=== PATIENT | female | born 1945 | race Caucasian/White ===

== ENCOUNTER 2017-02-08 10:46 | Emergency (ER) | payer OTHER ==
--- NOTE | 2017-02-08 12:32 | ED NURSING NOTES ---
Clinical Report - Nurses [facility] [address] [place] [address] 02/08/2017 10:50 Patient: IGOR YOUNGER TRIAGE Acuity: LEVEL 3. Chief Complaint: ABDOMINAL PAIN. Alert. No acute distress. --11:14 Carrie Damico R.N. 11:07 02/08/17. BP: 151/64. HR: 88. RR: 16. O2 saturation: 99%. Temp: 97.9 F. Pain level now: 10/15. --11:14 Carrie Damico R.N. Weight: 59.4 kg stated. Height/Length: 66 inches Per Patient. BMI: 21.1. --11:14 Carrie Damico R.N. Medications Levothyroxine Sodium Oral. --11:13 Carrie Damico R.N. Vitamin D Oral. --11:13 Carrie Damico R.N. Medication/allergy information source: the patient. --11:14 Carrie Damico R.N. Allergies No Known Drug Allergy. --11:13 Carrie Damico R.N. History Arrived by private vehicle. Historian: patient. Accompanied by spouse. Primary physician (Alfredo). Worsened while participating in light activity. Symptoms are constant (6 days ago). Describes the quality as "pain" and dull. Relates location as in the right lower quadrant. ( Pt reports 6 days of RLQ pain that worsens with a full bladder.). Reports last BM was this am. No nausea, vomiting, diarrhea or constipation. 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 PAST MEDICAL HX: The patient is post-menopausal. SOCIAL HX: Current every day light tobacco smoker (cigarette)- less than 1/2 a pack per day. Occasional alcohol use. No drug use. NUTRITIONAL RISK ASSESSMENT: The nutritional risk assessment revealed no deficiencies. FUNCTIONAL ASSESSMENT: Functional assessment: no impairments noted. LEARNING NEEDS ASSESSMENT: The learning needs assessment revealed no barriers. FALL RISK ASSESSMENT: Fall risk assessment completed. Risk factors identified include patient age greater than 65 years. Fall interventions initiated. Patient placed on stretcher. Side rails up x1. SKIN INTEGRITY ASSESSMENT: Skin integrity risk assessment completed. No skin integrity risk identified. --11:14 Carrie Damico R.N. PROBLEMS: Thyroid Disease. --11:13 Carrie Damico R.N. ADDITIONAL SURGERIES: Ulcer surgery. --11:11 Carrie Damico R.N. Assessment GENERAL / NEURO / PSYCH: Alert. Oriented X 4. Appears in no acute distress. [place] Coma Scale: 15- eyes open spontaneously (4); best verbal response- oriented x 4 (5); best motor response- obeys commands (6). Patient appears calm and cooperative. RESPIRATORY: Respirations not labored. CVS: Capillary refill less than 2 seconds. GI / : Abdomen soft. SKIN: Mucous membranes are pink. Skin is warm and dry. --11:14 Carrie Damico R.N. Interventions ID band on patient. To treatment room. --11:14 Carrie Damico R.N. PHYSICAL ASSESSMENT Ambulatory to room. GENERAL / NEURO / PSYCH: Alert. Oriented X 4. Appears in no acute distress. HEENT: Mucous membranes are pink. RESPIRATORY: Respirations not labored. CVS: Capillary refill less than 2 seconds. GI / : Abdomen soft and nontender. SKIN: Skin is warm and dry. --11:12 Carrie Damico R.N. NURSING PROGRESS NOTES Patient gowned. Two patient identifiers checked. Checked patient name and birthdate: patient confirmed. Call light placed in reach. Side rails up x 1. Bed placed in lowest position. Brakes of bed on. Patient ready for evaluation- chart flagged and ED physician notified. --11:11 Carrie Damico R.N. Checked patient name and birthdate: patient confirmed. Instructions provided to collect clean catch urine and patient verbalized understanding. Clean catch urine collected with return of yellow-colored clear urine; sample sent to lab for urinalysis. Specimen labeled in the presence of the patient. --11:15 Carrie Damico R.N. 12:52 02/08/2017 Site #1 started via IV in the left antecubital space with an 20g angiocath, with aseptic technique and good blood return; one attempt. Blood drawn: rainbow set. Labeled in the presence of the patient and sent to the lab. Saline lock flushed with 10 mL saline. --12:52 Carrie Damico R.N. 14:36 02/08/2017 Ciprofloxacin (Ciprofloxacin) PO 500 mg given. Allergies verified and confirmed 5 rights. --14:36 Carrie Damico R.N. 14:36 02/08/2017 Flagyl (MetroNIDAZOLE) PO 500 mg given. Allergies verified and confirmed 5 rights. --14:36 Carrie Damico R.N. DISPOSITION / DISCHARGE 14:37 02/08/17. BP: 165/84. HR: 80. RR: 16. O2 saturation: 100%. Temp: 97.8 F (oral). --14:37 Carrie Damico R.N. Departure time: 14:40 Feb 08 2017. Condition at departure: unchanged and stable. No learning barriers present. Reviewed medication(s) side effects, precautions, dosing and course information. Prescription(s) given to the patient. Patient verbalized understanding. Written instructions provided in Malagasy. The patient was discharged by the physician. She was discharged home and accompanied by spouse. She left the Emergency Department ambulatory and via private vehicle. Spouse driving. --18:40 Carrie Damico R.N. 14:40 02/08/2017 Site #1 removed upon discharge. Catheter intact. Manual pressure and bandage applied. --18:40 Carrie Damico R.N. Locked/Released at 02/08/2017 18:40 by Carrie Damico R.N.
--- NOTE | 2017-02-08 12:32 | ED NURSING NOTES ---
Clinical Report - Nurses [facility] [address] [place] [address] 02/08/2017 10:50 Patient: IGOR YOUNGER TRIAGE Acuity: LEVEL 3. Chief Complaint: ABDOMINAL PAIN. Alert. No acute distress. --11:14 Carrie Damico R.N. 11:07 02/08/17. BP: 151/64. HR: 88. RR: 16. O2 saturation: 99%. Temp: 97.9 F. Pain level now: 10/15. --11:14 Carrie Damico R.N. Weight: 59.4 kg stated. Height/Length: 66 inches Per Patient. BMI: 21.1. --11:14 Carrie Damico R.N. Medications Levothyroxine Sodium Oral. --11:13 Carrie Damico R.N. Vitamin D Oral. --11:13 Carrie Damico R.N. Medication/allergy information source: the patient. --11:14 Carrie Damico R.N. Allergies No Known Drug Allergy. --11:13 Carrie Damico R.N. History Arrived by private vehicle. Historian: patient. Accompanied by spouse. Primary physician (Alfredo). Worsened while participating in light activity. Symptoms are constant (6 days ago). Describes the quality as "pain" and dull. Relates location as in the right lower quadrant. ( Pt reports 6 days of RLQ pain that worsens with a full bladder.). Reports last BM was this am. No nausea, vomiting, diarrhea or constipation. 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 PAST MEDICAL HX: The patient is post-menopausal. SOCIAL HX: Current every day light tobacco smoker (cigarette)- less than 1/2 a pack per day. Occasional alcohol use. No drug use. NUTRITIONAL RISK ASSESSMENT: The nutritional risk assessment revealed no deficiencies. FUNCTIONAL ASSESSMENT: Functional assessment: no impairments noted. LEARNING NEEDS ASSESSMENT: The learning needs assessment revealed no barriers. FALL RISK ASSESSMENT: Fall risk assessment completed. Risk factors identified include patient age greater than 65 years. Fall interventions initiated. Patient placed on stretcher. Side rails up x1. SKIN INTEGRITY ASSESSMENT: Skin integrity risk assessment completed. No skin integrity risk identified. --11:14 Carrie Damico R.N. PROBLEMS: Thyroid Disease. --11:13 Carrie Damico R.N. ADDITIONAL SURGERIES: Ulcer surgery. --11:11 Carrie Damico R.N. Assessment GENERAL / NEURO / PSYCH: Alert. Oriented X 4. Appears in no acute distress. [place] Coma Scale: 15- eyes open spontaneously (4); best verbal response- oriented x 4 (5); best motor response- obeys commands (6). Patient appears calm and cooperative. RESPIRATORY: Respirations not labored. CVS: Capillary refill less than 2 seconds. GI / : Abdomen soft. SKIN: Mucous membranes are pink. Skin is warm and dry. --11:14 Carrie Damico R.N. Interventions ID band on patient. To treatment room. --11:14 Carrie Damico R.N. PHYSICAL ASSESSMENT Ambulatory to room. GENERAL / NEURO / PSYCH: Alert. Oriented X 4. Appears in no acute distress. HEENT: Mucous membranes are pink. RESPIRATORY: Respirations not labored. CVS: Capillary refill less than 2 seconds. GI / : Abdomen soft and nontender. SKIN: Skin is warm and dry. --11:12 Carrie Damico R.N. NURSING PROGRESS NOTES Patient gowned. Two patient identifiers checked. Checked patient name and birthdate: patient confirmed. Call light placed in reach. Side rails up x 1. Bed placed in lowest position. Brakes of bed on. Patient ready for evaluation- chart flagged and ED physician notified. --11:11 Carrie Damico R.N. Checked patient name and birthdate: patient confirmed. Instructions provided to collect clean catch urine and patient verbalized understanding. Clean catch urine collected with return of yellow-colored clear urine; sample sent to lab for urinalysis. Specimen labeled in the presence of the patient. --11:15 Carrie Damico R.N. 12:52 02/08/2017 Site #1 started via IV in the left antecubital space with an 20g angiocath, with aseptic technique and good blood return; one attempt. Blood drawn: rainbow set. Labeled in the presence of the patient and sent to the lab. Saline lock flushed with 10 mL saline. --12:52 Carrie Damico R.N. 14:36 02/08/2017 Ciprofloxacin (Ciprofloxacin) PO 500 mg given. Allergies verified and confirmed 5 rights. --14:36 Carrie Damico R.N. 14:36 02/08/2017 Flagyl (MetroNIDAZOLE) PO 500 mg given. Allergies verified and confirmed 5 rights. --14:36 Carrie Damico R.N. DISPOSITION / DISCHARGE 14:37 02/08/17. BP: 165/84. HR: 80. RR: 16. O2 saturation: 100%. Temp: 97.8 F (oral). --14:37 Carrie Damico R.N. Departure time: 14:40 Feb 08 2017. Condition at departure: unchanged and stable. No learning barriers present. Reviewed medication(s) side effects, precautions, dosing and course information. Prescription(s) given to the patient. Patient verbalized understanding. Written instructions provided in Romanian. The patient was discharged by the physician. She was discharged home and accompanied by spouse. She left the Emergency Department ambulatory and via private vehicle. Spouse driving. --18:40 Carrie Damico R.N. 14:40 02/08/2017 Site #1 removed upon discharge. Catheter intact. Manual pressure and bandage applied. --18:40 Carrie Damico R.N. Locked/Released at 02/08/2017 18:40 by Carrie Damico R.N.
--- NOTE | 2017-02-08 12:32 | ED CLINICAL REPORT ---
Clinical Report - Physicians/Mid Levels [facility] [address] [place] [address] 02/08/2017 10:50 Patient: IGOR YOUNGER Time Seen: 1105; initial patient contact. Arrived- By private vehicle. Historian- patient. HISTORY OF PRESENT ILLNESS Chief Complaint: RLQ abdo pain with a "full bladder". This started about a week and still present (unchanged). It was gradual in onset and has been waxing/waning but is not gone now. Modifying factors- (worsened with bladder becoming full. better with voiding.). The patient has had mild, dull abdominal pain. The pain is described as located in the right lower quadrant. This abdominal pain is not similar to previous symptoms. No pain with urination, urinary frequency, urgency of urination or hematuria. Similar symptoms previously: None. Recent medical care: Not recently seen/assessed. REVIEW OF SYSTEMS All systems otherwise negative, except as recorded above. PAST HISTORY See nurses notes. Medications: Vitamin D Oral. Levothyroxine Sodium Oral. Allergies: No Known Drug Allergy. SOCIAL HISTORY Smoker- current status unknown. Occasional alcohol use. No drug use. Recent travel- ([place] Is a local resident. ADDITIONAL NOTES The nursing notes have been reviewed. PHYSICAL EXAM Vital Signs: 02/08/2017 11:07 BP: 151/64. HR: 88. RR: 16. O2 saturation: 99%. Temp: 97.9 F. Pain level now: 3/10. Oxygen saturation normal. Appearance: Alert. Oriented X3. No acute distress. (drinking from [employer]). HEENT: Normal external inspection. ENT: Pharynx normal. Neck: Neck supple. CVS: Heart sounds normal. Respiratory: No respiratory distress. Breath sounds normal. Chest nontender. Abdomen: Soft and nontender. Bowel sounds normal. No mass. Back: Normal external inspection. No CVA tenderness. Skin: Skin warm and dry. Normal skin color. No rash. Normal skin turgor. Extremities: Extremities nontender. No lower extremity edema. LABS, X-RAYS, AND EKG Abdominal CT: PROCEDURE: CT ABD/PELVIS WITH CONTRAST CLINICAL INDICATION: RLQ ABDO PAIN TECHNIQUE: 125 ml of Isovue 300 were injected intravenously and axial images were obtained of the entire abdomen and pelvis with sagittal and coronal reformations. COMPARISON: None. FINDINGS: ABDOMEN: Lung base are clear. Heart size is normal. Bilateral breast implants with heavy peripheral calcifications. GE junction surgical changes. Liver, gallbladder, pancreas, spleen, adrenal glands and kidneys are normal. Nonspecific bowel gas pattern. Mild degenerative changes of the spine. PELVIS: Enlarged (12 mm) fluid filled appendix with wall hyperemia and adjacent inflammatory changes. There is trace free fluid. There is no abscess or free air. 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 Atrophic uterus. Normal adnexa and bladder. No suspicious osseous lesions. IMPRESSION: 1. Findings consistent with acute appendicitis 2. Trace free fluid 3. GE junction surgical changes. The study was independently viewed by me and interpreted by the radiologist. The study was discussed with the radiologist (via pacs). Laboratory Tests: UA-Culture if indicated: (CARMELA: 02/08/2017 11:00) ( [facility] 02/08/2017 11:34) Final results Test Result Flag Units (Reference) URINE COLOR STRAW URINE APPEARANCE CLEAR URINE GLUCOSE NEGATIVE (NEGATIVE) URINE BILIRUBIN NEGATIVE (NEGATIVE) URINE KETONE NEGATIVE (NEGATIVE) URINE SPECIFIC GRAVITY <= 1.005 L (1.010-1.030) URINE PH 6.0 (5.0-8.0) URINE PROTEIN NEGATIVE (NEGATIVE) URINE UROBILINOGEN 0.2 EU/dL (0.2-1.0) URINE NITRITE NEGATIVE (NEGATIVE) URINE BLOOD NEGATIVE (NEGATIVE) URINE LEUK ESTERASE NEGATIVE (NEGATIVE) URINE RBC NONE SEEN rbc/hpf (0-1) URINE WBC NONE SEEN wbc/hpf (0-1) URINE EPITHELIAL CELLS NONE SEEN EPI/hpf (0-5) URINE BACTERIA NONE SEEN (NONE SEEN) URINE COMMENT CULT NOT INDICATED URINE CULTURES ARE SET-UP BASED ON THE FOLLOWING CRITERIA:POSITIVE NITRITEPOSITIVE LEUKOCYTE ESTERASEGREATER THAN 10 WHITE BLOOD CELLSMODERATE (2+) OR GREATER BACTERIA CBC w Diff: (CARMELA: 02/08/2017 12:50) ( [facility] 02/08/[place] 13:00) Final results Test Result Flag Units (Reference) WHITE BLOOD COUNT 6.9 K/uL (4.5-11.5) RED BLOOD COUNT 3.84 L M/uL (4.00-5.20) HEMOGLOBIN 12.0 gm/dL (12.0-16.0) HEMATOCRIT 35.6 L % (36.0-46.0) MEAN CELL VOLUME 93 fL (80-100) MEAN CORPUSCULAR HGB 31 pg (26-34) MEAN CORPUSCULAR HGB CONC 34 g/dL (31-37) RED CELL DISTRIBUTION WIDTH 14.2 % (11.6-14.8) PLATELET COUNT 210 K/uL (150-400) NEUTROPHIL % 69.9 % (50-75) LYMPH % 22.8 L % (25-40) MONO % 5.4 % (3-14) EOSINOPHIL % 1.4 % (0-4) BASOPHIL % 0.5 % (0-2) BMP: (CARMELA: 02/08/2017 12:50) ( [facility] 02/08/2017 13:17) Final results Test Result Flag Units (Reference) GLUCOSE 89 mg/dL (70-110) BUN 9 mg/dL (7-18) CREATININE 0.7 mg/dL (0.6-1.3) Estimated GFR >60 mL/min Estimated GFR- >60 mL/min Note: Persistent reduction over 3 months in eGFR<60 mL/min/1.73 m2 defines CKD. Patients with eGFR values>=60 mL/min/1.73 m2 may also have CKD if evidence ofpersistent proteinuria. Additional information may be foundat www.kidney.org. SODIUM 141 mmol/L (136-145) POTASSIUM 3.9 mmol/L (3.5-5.1) CHLORIDE 105 mmol/L (98-107) CARBON DIOXIDE 27 mmol/L (21-32) CALCIUM 8.7 mg/dL (8.5-10.1) . PROGRESS AND PROCEDURES Course of Care: the patient is a pleasant 71-year-old female with no pertinent past medical history presenting for a vaginal right lower quadrant abdominal pain. The patient states that she likely has urinary tract infection and would only like to be evaluated for that entity at this time. I discussion with possible acute appendicitis. Patient states that she would like to look at the urinalysis results first. The patient's urinalysis did not show any signs of acute urinary tract infection. The patient is noted to still have the pain there. Because of the persistent pain and the unremarkable urinalysis, had discussion with the patient in regards to workup with CT scan. Patient stateollowp with her doctor. Patient was ready for discharge. Patient was informed that she can change her mind at any time. Prior to patient's discharge from the emergency department she did change her mind. Patient was agreeable to evaluation with CT scan of the abdomen and the pelvis with laboratory studies. The patient's workup was remarkable for acute appendicitis. Had a long discussion with patient in regards to acute appendicitis. Recommended patient be admitted to the hospital and have her appendix removed. Discussed the patient by concern for her health and safety. Patient states that she understands however does not want to stay to hospital. Patient expressed concern with insurance companies. Had spoken with registration who was able to talk to the patient in regards to possible competitions with insurance with her being out of state. Patient states that she is a snow[place] from [place]. Explained to patient that we were not concerned about her ability to pay and would work any concerns at with the insurance company. The patient states that she'll follow up with her doctor. Had a long discussion with the patient in regards to her serious health condition and need for evaluation. Patient states that she will return immediately for any worsening. Patient states that she will otherwise follow up with her doctor when she returns to [place] shortly. Do not feel i can force the patient is stated the hospital against her will. Do not feel I can subject the patient invasive medical interventions against her will. Patient is able to make medical decisions for herself. Patient is also accompanied by who is able to watch her. Patient is nontoxic. Patient does not appear altered. Consult obtained from surgery. Disposition: Discharged. Condition: guarded. CLINICAL IMPRESSION Acute right lower quadrant abdominal pain. 02/08/2017 11:07 BP: 151/64. HR: 88. RR: 16. O2 saturation: 99%. Temp: 97.9 F. Pain level now: 3/10. Hypertensive. Oxygen saturation normal. Acute appendicitis with localized peritonitis. Essential hypertension. INSTRUCTIONS (Go to the nearest hospital as soon as you can when you get back to [place]. Return immediately for any worsening.). Warnings: GENERAL WARNINGS: Return or contact your physician immediately if your condition worsens or changes unexpectedly, if not improving as expected, or if other problems arise. Specifically return if pain, vomiting, bleeding, breathing difficulty or fever. Your Current Medications: CONTINUE TAKING THE FOLLOWING MEDICATIONS: Levothyroxine Sodium Oral. Vitamin D Oral. Prescription Medications: Cipro 500 mg: take 1 tab orally every 12 hours for 7 days. No refills. Substitution is permissible. (disp 14 tabs) Flagyl 500 mg: Take 1 tablet orally every 8 hours for 7 days. No refill. Substitution is permissible. (disp 21 each) Follow-up: Return to the emergency department as needed. Follow up with your doctor. Reason for referral: as soon as you return to [place]. Summary of care provided to patient and family via paper. Screening today revealed the patient's blood pressure to be in the hypertensive range. The patient should follow up with a primary care provider for blood pressure management. Understanding of the discharge instructions verbalized by patient. (Electronically signed by Liam Sage Dr. 02/10/2017 7:04)
--- NOTE | 2017-02-08 12:32 | ED ORDER SUMMARY ---
..... Patient: IGOR YOUNGER OrderSheet [facility] VisitID: [id number] [place] [address] 71y, F Registration Date/Time: 02/08/2017 ORDER SHEET Weight: 59.4 kg (stated) Allergies: No Known Drug Allergy GENERAL ORDERS: UA-Culture if indicated Urgent (11:15 02/08/2017 MWinterer R.N. per protocol) (Ack 11:17 PWeiler ER Tech1) (11:17 PWeiler ER Tech1) CT Abd/Pel w Cont (No) (N/A) Urgent (12:34 02/08/2017 Darion Reeves) (Ack 12:36 PWeijose roberto ER Tech1) (13:52 MWinterer R.N.) CBC w Diff Urgent (12:34 02/08/2017 Darion Reeves) (Ack 12:36 PWeijose roberto ER Tech1) (12:52 MWinterer R.N.) BMP Urgent (12:34 02/08/2017 Darion Reeves) (Ack 12:36 PWeiler ER Tech1) (12:52 MWinterer R.N.) MEDICATION ORDERS: Ciprofloxacin PO 500 mg (NOW) (14:35 02/08/2017 Darion Reeves) (14:36 MWinterer R.N.) Flagyl PO 500 mg (NOW) (14:35 02/08/2017 Darion Reeves) (14:36 MWinterer R.N.) IV FLUIDS: IV Saline Lock (12:34 02/08/2017 Darion Reeves) (Ack 12:39 MWinterer R.N.) (12:52 MWinterer R.N.) ORDER SHEET NOTES: [Electronically signed by Carrie Damico R.N. (18:40 02/08/2017)] [Electronically signed by Liam Sage Dr. (07:04 02/10/2017)] [Electronically locked/signed by Carrie Damico R.N. (18:40 02/08/2017)]
--- NOTE | 2017-02-08 12:32 | ED ORDER SUMMARY ---
..... Patient: IGOR YOUNGER OrderSheet [facility] VisitID: [id number] [place] [address] 71y, F Registration Date/Time: 02/08/2017 ORDER SHEET Weight: 59.4 kg (stated) Allergies: No Known Drug Allergy GENERAL ORDERS: UA-Culture if indicated Urgent (11:15 02/08/2017 MWinterer R.N. per protocol) (Ack 11:17 PWeiler ER Tech1) (11:17 PWeiler ER Tech1) CT Abd/Pel w Cont (No) (N/A) Urgent (12:34 02/08/2017 Darion Reeves) (Ack 12:36 PWeijose roberto ER Tech1) (13:52 MWinterer R.N.) CBC w Diff Urgent (12:34 02/08/2017 Darion Reeves) (Ack 12:36 PWeijose roberto ER Tech1) (12:52 MWinterer R.N.) BMP Urgent (12:34 02/08/2017 Darion Reeves) (Ack 12:36 PWeiler ER Tech1) (12:52 MWinterer R.N.) MEDICATION ORDERS: Ciprofloxacin PO 500 mg (NOW) (14:35 02/08/2017 Darion Reeves) (14:36 MWinterer R.N.) Flagyl PO 500 mg (NOW) (14:35 02/08/2017 Darion Reeves) (14:36 MWinterer R.N.) IV FLUIDS: IV Saline Lock (12:34 02/08/2017 Darion Reeves) (Ack 12:39 MWinterer R.N.) (12:52 MWinterer R.N.) ORDER SHEET NOTES: [Electronically signed by Carrie Damico R.N. (18:40 02/08/2017)] [Electronically signed by Liam Sage Dr. (07:04 02/10/2017)] [Electronically locked/signed by Carrie Damico R.N. (18:40 02/08/2017)]
--- NOTE | 2017-02-08 13:53 | DIAGNOSTIC IMAGING REPORT ---
PROCEDURE: CT ABD/PELVIS WITH CONTRAST CLINICAL INDICATION: RLQ ABDO PAIN TECHNIQUE: 125 ml of Isovue 300 were injected intravenously and axial images were obtained of the entire abdomen and pelvis with sagittal and coronal reformations. COMPARISON: None. FINDINGS: ABDOMEN: Lung base are clear. Heart size is normal. Bilateral breast implants with heavy peripheral calcifications. GE junction surgical changes. Liver, gallbladder, pancreas, spleen, adrenal glands and kidneys are normal. Nonspecific bowel gas pattern. Mild degenerative changes of the spine. PELVIS: Enlarged (12 mm) fluid filled appendix with wall hyperemia and adjacent inflammatory changes. There is trace free fluid. There is no abscess or free air. 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 Atrophic uterus. Normal adnexa and bladder. No suspicious osseous lesions. IMPRESSION: 1. Findings consistent with acute appendicitis 2. Trace free fluid 3. GE junction surgical changes 4. Results discussed with Dr. Sage All CT scans at this facility use dose modulation, iterative reconstruction, and/or weight-based dosing when appropriate to reduce radiation dose to as low as reasonably achievable.
--- NOTE | 2017-02-10 07:04 | ED MED RECONCILIATION SUMMARY ---
Patient: IGOR YOUNGER Medication Reconciliation Report [facility] VisitID: [id number] [address] [place] [address] 71y, F Registration Date/Time: 02/08/2017 Weight: 59.4 kg Height/Length: 66 in. BMI: 21.1 ALLERGIES: No Known Drug Allergy The patient's Home Medications are listed below: CONTINUE TAKING THE FOLLOWING MEDICATIONS: Levothyroxine Sodium Oral Vitamin D Oral The source(s) of the original Home Medication information: patient The following Medications were given to the patient in the Emergency Department: Ciprofloxacin [PO] PO 500 mg, administered: 02/08/2017 2:36:00 PM Flagyl [PO] PO 500 mg, administered: 02/08/2017 2:36:00 PM The following Medications were prescribed to the patient: Cipro 500 mg: take 1 tab orally every 12 hours for 7 days. No refills. Substitution is permissible.(disp 14 tabs) -- Liam Sage Dr. Flagyl 500 mg: Take 1 tablet orally every 8 hours for 7 days. No refill. Substitution is permissible.(disp 21 each) -- Liam Sage Dr.
--- NOTE | 2017-02-10 07:04 | ED MAR SUMMARY ---
..... Medication Administration Record [facility] [address] [place] [address] Patient: IGOR YOUNGER Visit ID: [id number] 71y, F Weight: 59.4 kg Height/Length: 66 in BMI: 21.1 ALLERGIES: No Known Drug Allergy Given 14:02/08/2017 Carrie Damico REzioNEzio Medication Administered: CIPROFLOXACIN [PO] (CIPROFLOXACIN), Dose: 500 mg PO. Medication Ordered: Ciprofloxacin PO 500 mg (NOW). Given 14:02/08/2017 Carrie Damico, REzioN. Medication Administered: FLAGYL [PO] (METRONIDAZOLE), Dose: 500 mg PO. Medication Ordered: Flagyl PO 500 mg (NOW).
--- NOTE | 2017-02-10 07:04 | ED MED RECONCILIATION SUMMARY ---
Patient: IGOR YOUNGER Medication Reconciliation Report [facility] VisitID: [id number] [address] [place] [address] 71y, F Registration Date/Time: 02/08/2017 Weight: 59.4 kg Height/Length: 66 in. BMI: 21.1 ALLERGIES: No Known Drug Allergy The patient's Home Medications are listed below: CONTINUE TAKING THE FOLLOWING MEDICATIONS: Levothyroxine Sodium Oral Vitamin D Oral The source(s) of the original Home Medication information: patient The following Medications were given to the patient in the Emergency Department: Ciprofloxacin [PO] PO 500 mg, administered: 02/08/2017 2:36:00 PM Flagyl [PO] PO 500 mg, administered: 02/08/2017 2:36:00 PM The following Medications were prescribed to the patient: Cipro 500 mg: take 1 tab orally every 12 hours for 7 days. No refills. Substitution is permissible.(disp 14 tabs) -- Liam Sage Dr. Flagyl 500 mg: Take 1 tablet orally every 8 hours for 7 days. No refill. Substitution is permissible.(disp 21 each) -- Liam Sage Dr.
--- NOTE | 2017-02-10 07:04 | ED DISCHARGE INSTRUCTIONS ---
Patient: IGOR YOUNGER General Instructions [facility] VisitID: [id number] [place] [address] 71y, F Registration Date/Time: 02/08/2017 Acute right lower quadrant abdominal pain. 02/08/2017 11:07 BP: 151/64. HR: 88. RR: 16. O2 saturation: 99%. Temp: 97.9 F. Pain level now: 10/15. Hypertensive. Oxygen saturation normal. Acute appendicitis with localized peritonitis. Essential hypertension. INSTRUCTIONS (Go to the nearest hospital as soon as you can when you get back to [place]. Return immediately for any worsening.). Warnings: GENERAL WARNINGS: Return or contact your physician immediately if your condition worsens or changes unexpectedly, if not improving as expected, or if other problems arise. Specifically return if pain, vomiting, bleeding, breathing difficulty or fever. Your Current Medications: CONTINUE TAKING THE FOLLOWING MEDICATIONS: Levothyroxine Sodium Oral. Vitamin D Oral. Prescription Medications: Cipro 500 mg: take 1 tab orally every 12 hours for 7 days. No refills. Substitution is permissible. (disp 14 tabs) Flagyl 500 mg: Take 1 tablet orally every 8 hours for 7 days. No refill. Substitution is permissible. (disp 21 each) Follow-up: Return to the emergency department as needed. Follow up with your doctor. Reason for referral: as soon as you return to [place]. Summary of care provided to patient and family via paper. Screening today revealed the patient's blood pressure to be in the hypertensive range. The patient should follow up with a primary care provider for blood pressure management. Understanding of the discharge instructions verbalized by patient. ADDITIONAL INFORMATION Abdominal Pain, Unknown Cause (Female) The exact cause of your abdominal (stomach) pain is not certain. This does not mean that this is something to worry about, or the right tests were not done. Everyone likes to know the exact cause of the problem, but sometimes with abdominal pain, there is no clear-cut cause, and this could be a good thing. The good news is that your symptoms can be treated, and you will feel better. Your condition does not seem serious now; however, sometimes the signs of a serious problem may take more time to appear. For this reason,it is important for you to watch for any new symptoms, problems,or worsening of your condition. Over the next few days, the abdominal pain may come and go, or be continuous. Other common symptoms can include nausea and vomiting. Sometimes it can be difficult to tell if you feel nauseous, you may just feel bad and not associate that feeling with nausea. Constipation, diarrhea, and a fever may go along with the pain. The pain may continue even if treated correctly over the following days. Depending on how things go, sometimes the cause can become clear and may require further or different treatment. Additional evaluations, medications, or tests may be needed. Home care Your health care provider may prescribe medications for pain, symptoms, or an infection. Follow the health care provider's instructions for taking these medications. General care Rest until your next exam. No strenuous activities. Try to find positions that ease discomfort. A small pillow placed on the abdomen may help relieve pain. Something warm on your abdomen (such as a heating pad) may help, but be careful not to burn yourself. Diet Do not force yourself to eat, especially if having cramps, vomiting, or diarrhea. Water is important so you do not get dehydrated. Soup may also be good. Sports drinks may also help, especially if they are not too acidic. Make sure you don't drink sugary drinks as this can make things worse. Take liquids in small amounts. Do not guzzle them. Caffeine sometimes makes the pain and cramping worse. Avoid dairy products if you have vomiting or diarrhea. Don't eat large amounts at a time. Wait a few minutes between bites. Eat a diet low in fiber (called a low-residue diet). Foods allowed include refined breads, white rice, fruit and vegetable juices without pulp, tender meats. These foods will pass more easily through the intestine. Avoid whole-grain foods, whole fruits and vegetables, meats, seeds and nuts, fried or fatty foods, dairy, alcohol and spicy foods until your symptoms go away. Follow-up care Follow up with your health care provider as instructed, or if your pain does not begin to improve in the next 24 hours. When to seek medical care Seek prompt medical care if any of the following occur: Pain gets worse or moves to the right lower abdomen New or worsening vomiting or diarrhea Swelling of the abdomen Unable to pass stool for more than three days Fever of 100.4F (38C) or higher, or as directed by your healthcare provider. Blood in vomit or bowel movements (dark red or black color) Jaundice (yellow color of eyes and skin) Weakness, dizziness Chest, arm, back, neck or jaw pain Unexpected vaginal bleeding or missed period Call 911 Call emergency services if any of the following occur: Trouble breathing Confusion Fainting or loss of consciousness Rapid heart rate Seizure Abdominal Pain,Possible Appendicitis [Repeat Exam, Female] Based on your visit today, the exact cause of your abdominal (stomach) pain is not certain. However, you do have some of the early signs of APPENDICITIS. Early in an appendix infection the symptoms can be similar to a simple "stomach ache" or "stomach flu". Therefore, the diagnosis can be hard to make. Since an appendix infection is a serious condition, it is important to know if this is the cause of your symptoms. WAITING for more time to pass and repeating the exam is the best way to find out whether you have appendicitis. Within the next 12-24 hours the cause of your stomach pain should become clear. It is important for you to watch for any new symptoms or worsening of your condition. (See below). Home Care: Rest until your next exam. No strenuous activities. Eat a diet low in fiber (called a low-residue diet). Foods allowed include refined breads, white rice, fruit and vegetable juices without pulp, tender meats. These foods will pass more easily through the intestine. Avoid whole-grain foods, whole fruits and vegetables, meats, seeds and nuts, fried or fatty foods, dairy, alcohol and spicy foods until your symptoms go away. In some cases, you may be asked not to eat or drink anything until you are re-examined. Return for another exam exactly as directed. Follow Up with your doctor or this facility as directed. Get Prompt Medical Attention if any of the following occur: Pain gets worse or moves to the right lower abdomen New or worsening vomiting or diarrhea Swelling of the abdomen Unable to pass stool for more than three days Fever of 100.4F (38C) or higher, or as directed by your healthcare provider Blood in vomit or bowel movements (dark red or black color) Weakness, dizziness or fainting Unexpected vaginal bleeding High Blood Pressure -- To Be Confirmed [No Tx] Your blood pressure was higher today than normal. Sometimes anxiety or pain can cause a temporary rise in blood pressure that later returns to normal. If your blood pressure is high on one measurement, this does not mean that you have hypertension (a chronic illness). However, you must have your blood pressure measured again within the next few days to find out if its still high. A normal blood pressure is 120/80 or less. The first (top) number is the "systolic" pressure. The second (bottom) number is the "diastolic" pressure. Hypertension exists when either the top number is 140 or higher, OR the bottom number is 90 or higher on repeated measurements. Blood pressure in the range of 120-140 (systolic) or 80-89 (diastolic) is considered "pre-hypertension". This means your are at risk for getting hypertension. You should have regular blood pressure checks to be sure your blood pressure is not rising. Home Care: Measure your blood pressure on 3 different days and write down the results. This can be done at your doctor's office or this facility. Some pharmacies and grocery stores offer automated blood pressure machines for your use. Follow Up: If your blood pressure is "high" (over 120/80) on 2 out of 3 days, you will need to follow up with your doctor for further evaluation and treatment. DO NOT PUT THIS OFF! Untreated high blood pressure increases the risk for heart attack, also known as acute myocardial infarction, or AMI, and stroke. It is a treatable condition. Get Prompt Medical Attention if any of the following occur: Chest pain or shortness of breath Severe headache Throbbing or rushing sound in the ears Nosebleed Sudden severe abdominal pain Extreme drowsiness, confusion or fainting Dizziness or vertigo (dizziness with spinning sensation) Weakness of an arm or leg or one side of the face Difficulty with speech or vision Ciprofloxacin Hydrochloride Oral tablet What is this medicine? CIPROFLOXACIN (sip jesús FLOX a sin) is a quinolone antibiotic. It is used to treat certain kinds of bacterial infections. It will not work for colds, flu, or other viral infections. How should I use this medicine? Take this medicine by mouth with a glass of water. Follow the directions on the prescription label. Take your medicine at regular intervals. Do not take your medicine more often than directed. Take all of your medicine as directed even if you think your are better. Do not skip doses or stop your medicine early. You can take this medicine with food or on an empty stomach. It can be taken with a meal that contains dairy or calcium, but do not take it alone with a dairy product, like milk or yogurt or calcium-fortified juice. A special MedGuide will be given to you by the pharmacist with each prescription and refill. Be sure to read this information carefully each time. Talk to your [employer] basic regarding the use of this medicine in children. Special care may be needed. What side effects may I notice from receiving this medicine? Side effects that you should report to your doctor or health behavioral health care manager as soon as possible: - allergic reactions like skin rash, itching or hives, swelling of the face, lips, or tongue - breathing problems - confusion, nightmares or hallucinations - feeling faint or lightheaded, falls - irregular heartbeat - joint, muscle or tendon pain or swelling - pain or trouble passing urine -persistent headache with or without blurred vision - redness, blistering, peeling or loosening of the skin, including inside the mouth - seizure - unusual pain, numbness, tingling, or weakness Side effects that usually do not require medical attention (report to your doctor or health behavioral health care manager if they continue or are bothersome): - diarrhea - nausea or stomach upset - white patches or sores in the mouth What may interact with this medicine? Do not take this medicine with any of the following medications: cisapride droperidol terfenadine tizanidine This medicine may also interact with the following medications: antacids caffeine cyclosporin didanosine (ddI) buffered tablets or powder medicines for diabetes medicines for inflammation like ibuprofen, naproxen methotrexate multivitamins omeprazole phenytoin probenecid sucralfate theophylline warfarin What if I miss a dose? If you miss a dose, take it as soon as you can. If it is almost time for your next dose, take only that dose. Do not take double or extra doses. Where should I keep my medicine? Keep out of the reach of children. Store at room temperature below 30 degrees C (86 degrees F). Keep container tightly closed. Throw away any unused medicine after the expiration date. What should I tell my health care provider before I take this medicine? They need to know if you have any of these conditions: -bone problems -cerebral disease -joint problems -irregular heartbeat -kidney disease -liver disease -myasthenia gravis -seizure disorder -tendon problems -an unusual or allergic reaction to ciprofloxacin, other antibiotics or medicines, foods, dyes, or preservatives - or trying to get -breast-feeding What should I watch for while using this medicine? Tell your doctor or health behavioral health care manager if your symptoms do not improve. Do not treat diarrhea with over the counter products. Contact your doctor if you have diarrhea that lasts more than 2 days or if it is severe and watery. You may get drowsy or dizzy. Do not drive, use machinery, or do anything that needs mental alertness until you know how this medicine affects you. Do not stand or sit up quickly, especially if you are an older patient. This reduces the risk of dizzy or fainting spells. This medicine can make you more sensitive to the sun. Keep out of the sun. If you cannot avoid being in the sun, wear protective clothing and use sunscreen. Do not use sun lamps or tanning beds/booths. Avoid antacids, aluminum, calcium, iron, magnesium, and zinc products for 6 hours before and 2 hours after taking a dose of this medicine. Metronidazole Oral tablet What is this medicine? METRONIDAZOLE (me troe NI da zole) is an antiinfective. It is used to treat certain kinds of bacterial and protozoal infections. It will not work for colds, flu, or other viral infections. How should I use this medicine? Take this medicine by mouth with a full glass of water. Follow the directions on the prescription label. Take your medicine at regular intervals. Do not take your medicine more often than directed. Take all of your medicine as directed even if you think you are better. Do not skip doses or stop your medicine early. Talk to your [employer] regarding the use of this medicine in children. Special care may be needed. What side effects may I notice from receiving this medicine? Side effects that you should report to your doctor or health behavioral health care manager as soon as possible: allergic reactions like skin rash or hives, swelling of the face, lips, or tongue confusion, clumsiness difficulty speaking discolored or sore mouth dizziness fever, infection numbness, tingling, pain or weakness in the hands or feet trouble passing urine or change in the amount of urine redness, blistering, peeling or loosening of the skin, including inside the mouth seizures unusually weak or tired vaginal irritation, dryness, or discharge Side effects that usually do not require medical attention (report to your doctor or health behavioral health care manager if they continue or are bothersome): diarrhea headache irritability metallic taste nausea stomach pain or cramps trouble sleeping What may interact with this medicine? Do not take this medicine with any of the following medications: alcohol or any product that contains alcohol amprenavir oral solution cisapride disulfiram dofetilide dronedarone paclitaxel injection pimozide ritonavir oral solution sertraline oral solution sulfamethoxazole-trimethoprim injection thioridazine ziprasidone This medicine may also interact with the following medications: cimetidine lithium other medicines that prolong the QT interval (cause an abnormal heart rhythm) phenobarbital phenytoin warfarin What if I miss a dose? If you miss a dose, take it as soon as you can. If it is almost time for your next dose, take only that dose. Do not take double or extra doses. Where should I keep my medicine? Keep out of the reach of children. Store at room temperature below 25 degrees C (77 degrees F). Protect from light. Keep container tightly closed. Throw away any unused medicine after the expiration date. What should I tell my health care provider before I take this medicine? They need to know if you have any of these conditions: anemia or other blood disorders disease of the nervous system fungal or yeast infection if you drink alcohol containing drinks liver disease seizures an unusual or allergic reaction to metronidazole, or other medicines, foods, dyes, or preservatives or trying to get breast-feeding What should I watch for while using this medicine? Tell your doctor or health behavioral health care manager if your symptoms do not improve or if they get worse. You may get drowsy or dizzy. Do not drive, use machinery, or do anything that needs mental alertness until you know how this medicine affects you. Do not stand or sit up quickly, especially if you are an older patient. This reduces the risk of dizzy or fainting spells. Avoid alcoholic drinks while you are taking this medicine and for three days afterward. Alcohol may make you feel dizzy, sick, or flushed. If you are being treated for a sexually transmitted disease, avoid sexual contact until you have finished your treatment. Your sexual partner may also need treatment. You have been given the following additional information: Abdominal Pain, Unknown Cause, (Female) Abdominal Pain, Possible Appendicitis (Female) Hypertension, To Be Confirmed Ciprofloxacin Hydrochloride Oral tablet Metronidazole Oral tablet (Electronically signed by Liam Sage Dr. 02/10/2017 7:04)
--- NOTE | 2017-02-10 07:04 | ED MAR SUMMARY ---
..... Medication Administration Record [facility] [address] [place] [address] Patient: IGOR YOUNGER Visit ID: [id number] 71y, F Weight: 59.4 kg Height/Length: 66 in BMI: 21.1 ALLERGIES: No Known Drug Allergy Given 14:02/08/2017 Carrie Damico REzioNEzio Medication Administered: CIPROFLOXACIN [PO] (CIPROFLOXACIN), Dose: 500 mg PO. Medication Ordered: Ciprofloxacin PO 500 mg (NOW). Given 14:02/08/2017 Carrie Damico, REzioN. Medication Administered: FLAGYL [PO] (METRONIDAZOLE), Dose: 500 mg PO. Medication Ordered: Flagyl PO 500 mg (NOW).
== END 2017-02-08 14:40 | disposition left against medical advice (07) ==
LOC: ED SRH 10:46
DX: K35.3 Acute appendicitis with localized peritonitis (principal); I10 Essential (primary) hypertension
CPT/HCPCS: 90004; 90047; 95059